=== PATIENT | female | born 1995 | race Caucasian/White ===

== ENCOUNTER 2021-07-31 07:24 | Observation (INO) | payer OTHER ==
[2021-07-31 08:29] LABS: #Monocytes 0.4 10x3/uL (0.0-1.1); #Neutrophils 2.3 10x3/uL (1.5-8.4); %Basophils 0.6 % (0.0-2.0); %Eosinophils 0.6 % (0.0-6.0); %Lymphocytes 16.1 % (18.0-47.0); %Monocytes 10.9 % (0.0-10.0); %Neutrophils 71.5 % (40.0-75.0); Hemoglobin 5.4 g/dL (12.0-15.5); Mean Corpuscular HGB CONC 24.3 g/dL (32.0-36.0); Mean Corpuscular Volume 57.4 fl (81.6-98.3); Mean Platelet Volume 9.3 fl (7.4-10.4); Platelet Count 249 10x3/uL (150-450); Red Blood Cell (RBC) Count 3.87 10x6/uL (3.90-5.03); White Blood Cell (WBC) Count 3.2 10x3/uL (3.5-10.5)
[2021-07-31 08:40] LABS: ALT (SGPT) 9 U/L (8-55); AST (SGOT) 21 U/L (5-34); Albumin 4.1 g/dL (3.5-5.0); Alkaline Phosphatase 56 U/L (40-110); Anion Gap 10 mmol/L (10-20); BUN (Urea Nitrogen) 8 mg/dL (7.0-18.7); Bilirubin, Total 0.3 mg/dL (0.2-1.2); Calc. Creatinine Clearance 0 mL/min (70-130); Calcium 8.6 mg/dL (7.8-10.44); Carbon Dioxide 23 mmol/L (22-29); Chloride 109 mmol/L (98-107); Globulin 2.5 g/dL (2.4-3.5); Glucose 89 mg/dL (70-105); Potassium 4.1 mmol/L (3.5-5.1); Protein, Total 6.6 g/dL (6.0-8.3); Sodium 138 mmol/L (136-145)
[2021-07-31 08:56] LABS: Anisocytosis SLIGHT = 6-15 cells (100X) (0-5/hpf); Hypochromia MODERATE=16-30 cells (100X) (0-5/hpf); Microcytosis MODERATE=15-30 cells (100X) (0-5/hpf)
[2021-07-31 08:57] LABS: Ovalocytes SLIGHT = 2-5 cells (100X) (0-1/hpf); Polychromasia SLIGHT = 2-3 cells (100X) (0-2/hpf)
[2021-07-31 08:58] LABS: Platelet Morphology Comment Appears Adequate
[2021-07-31 08:59] LABS: Pregnancy Test - Urine (BHCG) Negative (Negative); Pregu Control Background? CLEAR/WHITE (CLR/WHITE); Pregu Control Bar Appear? YES (CONTROL BAR); Specific Gravity 1.005 (1.002-1.036)
[2021-07-31 09:20] LABS: SARS-CoV-2 NAA Rapid Test DETECTED (NotDetected)
[2021-07-31 09:21] LABS: Bilirubin Neg (Negative); Blood, Urine 50 (Negative); Clarity Clear (Clear); Glucose, Urine (Dipstick) Normal (Negative); Ketone, Urine Negative (Negative); Leukocyte Negative (Negative); Nitrite Negative (Negative); Protein, Urine (Dipstick) Negative (Neg-Trace); Specific Gravity, Urine 1.005 (1.002-1.036); Urobilinogen Normal mg/dL (Less than 2)
[2021-07-31 09:35] LABS: Bacteria/HPF Rare-Few HPF (None Seen); RBC/HPF 0-3 HPF (0-3); Squamous Epithelial 0-3 HPF (0-3); WBC/HPF 0-3 HPF (0-3)
[2021-07-31] MEDS ORDERED: Acetaminophen 500 MG TAB ONE (10:01)
[2021-07-31 11:34] VITALS: BMI 20.5
[2021-07-31] MEDS ORDERED: Ondansetron ODT 4 MG TAB PO PRN (12:16)
[2021-07-31] MEDS ORDERED: Acetaminophen 325 MG TAB PO PRN (12:16)
[2021-07-31] MEDS ORDERED: Ondansetron PF 4 MG/2 ML Vial IVP PRN (12:16)
[2021-07-31] MEDS ORDERED: Acetaminophen 650 MG Suppository PR PRN (12:16)
[2021-07-31] MEDS ORDERED: Sodium Chloride 0.9% 1,000 ML IV SCH (12:30)
[2021-07-31 12:32] VITALS: TEMP 98.4
[2021-07-31 13:00] VITALS: BP 99/54
[2021-07-31 13:00] LABS: Lymphocytes 17 % (21-51); Monocytes 8 % (0-10); Neutrophil 74 % (42-75)
[2021-07-31 13:02] LABS: MDiff Complete? YES
[2021-07-31] MEDS ORDERED: Ferrous Sulfate 325 MG TAB PO SCH (17:00)
[2021-08-01] MEDS ORDERED: Docusate 100 MG CAP PO SCH (09:00)
== END 2021-07-31 14:00 | disposition left against medical advice (07) ==
LOC: CSHERS 07:24 → CSHTELE 10:44
PROVIDERS: ADMIT Family Medicine; ATTEND Family Medicine
DX: D50.9 Iron deficiency anemia, unspecified (principal); U07.1 COVID-19; Z87.442 Personal history of urinary calculi
CPT/HCPCS: 36415; 36430; 80053; 81003; 81015; 81025; 83605; 83615; 85025; 85060; 86850; 86900; 86901; 87040; 99285; G0378; P9016; U0002